=== PATIENT | female | born 1930 | race Caucasian/White ===

== ENCOUNTER → 2018-02-16 | Emergency (ER) | payer OTHER ==
[~2018-02-16] VITALS: Ht 160 cm; Wt 47.2 kg
[~2018-02-16] MED LIST: ACID CONTROL20 MG; INTESTINEX1 CAP PO; NEURONTIN300 MG PO; VERAPAMIL ER240 MG
== END | disposition home or self-care (01) ==
LOC: ER 15:07
DX: R10.32 Left lower quadrant pain (principal); I70.0 Atherosclerosis of aorta; N39.0 Urinary tract infection, site not specified

== ENCOUNTER 2018-06-12 15:58 | Emergency (ER) | payer OTHER ==
[~2018-06-12] VITALS: Ht 152.4 cm; Wt 47.6 kg
[2018-06-13] MEDS ORDERED: ARICEPT5 MG PO ×2 (16:08)
[2018-06-13] MEDS ORDERED: ADULT LOW DOSE81 M1 PO ×2 (16:08)
[2018-06-13] MEDS ORDERED: RESTORIL7.5 MG PO ×2 (16:08)
== END 2018-06-13 14:57 | disposition home or self-care (01) ==
LOC: ER 15:58
DX: G30.8 Other Alzheimer's disease (principal); R41.0 Disorientation, unspecified; F05 Delirium due to known physiological condition; F02.81 Dementia in other diseases classified elsewhere, unspecified severity, with behavioral disturbance; Z86.73 Personal history of transient ischemic attack (TIA), and cerebral infarction without residual deficits
CPT/HCPCS: 70551

== ENCOUNTER → 2018-06-13 | Emergency (ER) | payer OTHER ==
[~2018-06-13] VITALS: Ht 147.3 cm; Wt 59.0 kg
[~2018-06-13] MED LIST changes: +ADULT LOW DOSE81 M1 PO; +ARICEPT5 MG PO; +RESTORIL7.5 MG PO
== END | disposition home or self-care (01) ==
LOC: ER 18:19
DX: R55 Syncope and collapse (principal)

== ENCOUNTER 2018-06-22 22:28 | Emergency (ER) | payer OTHER ==
[~2018-06-22] VITALS: Ht 152.4 cm; Wt 49.9 kg
== END 2018-06-23 12:03 | disposition home or self-care (01) ==
LOC: ER 22:28
DX: K29.60 Other gastritis without bleeding (principal)

== ENCOUNTER 2018-09-03 08:43 | Outpatient (CLI) | payer OTHER | END 2018-09-03 16:23 | disposition home or self-care (01) | LOC: LAB 08:43 | DX: E03.8 Other specified hypothyroidism (principal); I63.89 Other cerebral infarction; J45.998 Other asthma ==

== ENCOUNTER 2018-10-08 08:50 | Outpatient (CLI) | payer OTHER | END 2018-10-08 09:03 | disposition home or self-care (01) | LOC: NUCLEAR 08:50 | DX: I35.0 Nonrheumatic aortic (valve) stenosis (principal) ==

== ENCOUNTER → 2018-10-15 13:44 | Outpatient (CLI) | payer OTHER | END | disposition home or self-care (01) | LOC: NUCLEAR 10-13 09:00 | DX: M79.604 Pain in right leg (principal) ==

== ENCOUNTER 2018-10-15 14:36 | Outpatient (CLI) | payer OTHER | END 2018-10-15 15:03 | disposition home or self-care (01) | LOC: LAB 14:36 | DX: E03.8 Other specified hypothyroidism (principal); I10 Essential (primary) hypertension; I63.89 Other cerebral infarction; J45.998 Other asthma ==